=== PATIENT | female | born 1975 | race Caucasian/White ===

== ENCOUNTER 2023-10-28 23:01 | Emergency (ER) | payer OTHER ==
[~2023-10-28] VITALS: Ht 170.2 cm; Wt 80.0 kg
[2023-10-28 23:04] VITALS: TEMP 97.3
[2023-10-29 00:15] VITALS: BP 136/91; PULSE 77; O2SAT 99
[2023-10-29] MEDS: ketorolac trometh 30MG/ML vial 30 MG/ML VIAL IM ONE (00:38)
[2023-10-29 00:40] VITALS: RESP 15
== END 2023-10-29 00:55 | disposition home or self-care (01) ==
LOC: ER 23:02
DX: S93.401A Sprain of unspecified ligament of right ankle, initial encounter (principal); Z88.6 Allergy status to analgesic agent; Z90.49 Acquired absence of other specified parts of digestive tract; X50.1XXA Overexertion from prolonged static or awkward postures, initial encounter; Y93.89 Activity, other specified; Y92.89 Other specified places as the place of occurrence of the external cause; Y99.8 Other external cause status
CPT/HCPCS: 73610; 99284